=== PATIENT | female | born 1945 | race Caucasian/White ===

== ENCOUNTER → 2018-07-21 | Outpatient (CLI) | payer MEDICARE, BC ==
[~2018-07-21] VITALS: Ht 160 cm; Wt 88.6 kg
[~2018-07-21] MED LIST: ADVIL LIQUI-GE200 MG PO; GOOD SENSE ASPI81 M1 PO; PRAVASTATIN40 MG PO
[2018-07-21 16:06] VITALS: BP 132/78
== END ==
LOC: AMSURD 15:47
DX: I49.3 Ventricular premature depolarization (principal)

== ENCOUNTER → 2019-07-21 | Outpatient (CLI) | payer MEDICARE, BC ==
[~2019-07-21] VITALS: Ht 160 cm; Wt 88.6 kg
[2019-07-21 16:23] VITALS: BP 148/87
== END ==
LOC: AMSURD 15:10
DX: I49.3 Ventricular premature depolarization (principal)